=== PATIENT | male | born 1985 | race African-American/Black ===

== ENCOUNTER 2017-02-28 03:55 | Emergency (ER) | payer MEDICAID ==
[~2017-02-28] VITALS: Ht 188 cm; Wt 88.4 kg
[~2017-02-28 03:55] MED LIST: AMOXICILLIN500 MG PO; CLARITIN10 M1 PO; MOTRIN600 MG OR; NAPROSYN500 MG OR; NO MEDS; ZOFRAN ODT4 MG PO
[2017-02-28 04:31] LABS: URINE BILIRUBIN - DIPSTICK NEGATIVE (NEGATIVE); URINE BLOOD DIPSTICK MODERATE (NEGATIVE); URINE CLARITY CLEAR; URINE COLOR YELLOW; URINE GLUCOSE - DIPSTICK NEGATIVE (NEGATIVE); URINE KETONE NEGATIVE (NEGATIVE); URINE LEUK ESTERASE NEGATIVE (NEGATIVE); URINE NITRITE - DIPSTICK NEGATIVE (Negative); URINE PROTEIN - DIPSTICK NEGATIVE (NEG-TRACE); URINE SPECIFIC GRAVITY 1.025; URINE UROBILINOGEN - DIPSTICK 0.2 E.U./dL (0.2)
[2017-02-28 04:33] LABS: HEMATOCRIT 49.3 % (39.0-50.0); HEMOGLOBIN 16.2 g/dl (14.0-18.0); IMMATURE GRANULOCYTES 0.2 % (0.0-1.0); MEAN CELL VOLUME 96.3 fL CALC (80.0-100.0); MEAN CORPUSCULAR HGB 31.6 pG CALC (26.0-32.0); MEAN CORPUSCULAR HGB CONC 32.9 g/L CALC (32.0-36.0); NEUT# 4.02 thou/uL (1.82-7.42); RED BLOOD COUNT 5.12 mill/uL (4.70-6.10); RED CELL DISTRI WIDTH 13.7 % (11.5-15.5)
[2017-02-28 04:39] LABS: ALBUMIN 4.8 g/dL (3.2-5.0); ALKALINE PHOSPHATASE 83 u/l (38-126); AMYLASE 70 u/l (30-110); ANION GAP 17 (6-22 (CALC)); BILIRUBIN, TOTAL 0.5 mg/dL (0.0-1.4); BUN 15 mg/dL (9-20); BUN/CREATININE RATIO 16 (12-20 (CALC)); CALCIUM 9.9 mg/dL (8.4-10.2); CARBON DIOXIDE 29 mmol/l (22-30); CHLORIDE 103 mmol/l (95-108); CREATININE 0.9 mg/dL (0.7-1.3); GFR > 60 ML/MIN (>=60 (CALC)); GFR FOR AFR.AMER. > 60 ML/MIN (>=60 (CALC)); GLUCOSE 120 mg/dL (75-110); LIPASE 237 u/l (23-300); POTASSIUM 4.2 mmol/l (3.5-5.1); SGOT/AST 29 u/l (17-59); SGPT/ALT 39 u/l (21-72); SODIUM 144 mmol/l (137-146); TOTAL PROTEIN 8.4 g/dL (6.3-8.2)
[2017-02-28 04:58] LABS: URINE BACTERIA FEW hpf; URINE MUCUS FEW hpf (NONE-FEW); URINE SQUAMOUS EPITHELIAL CELL FEW EPI/hpf (0-FEW)
[2017-02-28] MEDS ORDERED: CIPROFLOXACN500 MG PO (06:24)
[2017-02-28] MEDS ORDERED: ZOFRAN ODT4 MG PO (06:24)
[2017-02-28 06:27] VITALS: BP 135/81
== END 2017-02-28 06:39 | disposition home or self-care (01) | DRG 392 ==
LOC: ED 03:55
PROVIDERS: Emergency Medicine
DX: R10.13 Epigastric pain (principal); N39.0 Urinary tract infection, site not specified; K52.9 Noninfective gastroenteritis and colitis, unspecified; R11.2 Nausea with vomiting, unspecified; R10.33 Periumbilical pain
CPT/HCPCS: Q9967

== ENCOUNTER 2017-04-30 03:51 | Emergency (ER) | payer MEDICAID ==
[~2017-04-30] VITALS: Ht 188 cm; Wt 83.6 kg
[~2017-04-30 03:51] MED LIST changes: +CIPROFLOXACN500 MG PO
[2017-04-30] MEDS ORDERED: PREDNISONE50 MG PO (04:10)
[2017-04-30] MEDS ORDERED: BENADRYL 50MG C50 MG PO (04:10)
[2017-04-30] MEDS ORDERED: CIMETIDINE400 M1 PO (04:10)
[2017-04-30 04:44] VITALS: BP 126/77
== END 2017-04-30 04:44 | disposition home or self-care (01) | DRG 918 ==
LOC: ED 03:51
DX: T61.781A Other shellfish poisoning, accidental (unintentional), initial encounter (principal); L29.9 Pruritus, unspecified; Y92.009 Unspecified place in unspecified non-institutional (private) residence as the place of occurrence of the external cause